=== PATIENT | female | born 1975 | race Caucasian/White ===

== ENCOUNTER 2017-04-12 03:14 | Emergency (ER) | payer OTHER ==
[~2017-04-12] VITALS: Ht 170.2 cm; Wt 65.8 kg
[~2017-04-12 03:14] MED LIST: XOPENEX HFA15 G1 IH
--- NOTE | 2017-04-12 04:01 | Diagnostic Imaging Report ---
CHEST 2 VIEWS, Technique: CHEST 2 VIEWS Comparison: 07/11/2011 Clinical history: Cough, fever DISCUSSION: Lung apices are partially excluded from view. Otherwise normal appearance of the heart, mediastinum, lungs and pleural spaces. IMPRESSION: No acute abnormality. Signed by: Dr Dolly Escobar MD on 04/12/2017 3:57 AM
== END 2017-04-12 04:45 | disposition home or self-care (01) ==
LOC: ER 03:14
DX: R50.9 Fever, unspecified (principal); R05 Cough; R11.0 Nausea; J00 Acute nasopharyngitis [common cold]; J45.909 Unspecified asthma, uncomplicated
CPT/HCPCS: 71020; 87400; 99283

== ENCOUNTER 2018-08-25 04:05 | Emergency (ER) | payer SELFPAY ==
[~2018-08-25] VITALS: Ht 170.2 cm; Wt 65.8 kg
--- OUTSIDE RECORDS SUMMARY | 2018-08-25 04:08 | XMS REPORT ---
Author [facility] Address Unknown Phone Unavailable Care Team Providers Care Cathodic Protection Technician Name Role Phone Saeed SHEETS Unavailable Unavailable Problems This patient has no known problems. Allergies, Adverse Reactions, Alerts This patient has no known allergies or adverse reactions. Medications This patient has no known medications. Results Test Description Test Time Test Comments Text Results Atomic Results Result Comments CHEST 2 VIEWS [place] [address] Patient Name: FREDDY BYRNES MR #: [id number] : 1975 Age/Sex: 41/F Req #: [id number] Adm Physician: Ordered by: CANDI SHEETS MD Report #: [id number] Location: ER Room/Bed: Procedure: [id number] DX/CHEST 2 VIEWS Exam Date: 04/12/17 Exam Time: 0340 REPORT STATUS: Signed CHEST 2 VIEWS, Technique: CHEST 2 VIEWS Comparison: 07/11/2011 Clinical history: Cough, fever DISCUSSION: Lung apices are partially excluded from view. Otherwise normal appearance of the heart, mediastinum, lungs and pleural spaces. IMPRESSION: No acute abnormality. Signed by: Dr Kristen Escobar MD on 04/12/2017 3:57 AM Dictated By: KRISTEN ESCOBAR MD Transcribed By: MARJ on 04/12/17356 COPY TO: CANDI SHEETS MD
== END 2018-08-25 04:30 | disposition left against medical advice (07) ==
LOC: ER 04:05
DX: K08.89 Other specified disorders of teeth and supporting structures (principal)

== ENCOUNTER 2020-02-06 20:10 | Emergency (ER) | payer SELFPAY ==
[~2020-02-06] VITALS: Ht 170.2 cm; Wt 73.0 kg
[2020-02-06] MEDS ORDERED: TRAMADOL HCL 50 MG TAB PO ONE (20:15)
--- NOTE | 2020-02-06 20:35 | Emergency Department Note ---
History of Present Illnes History of Present Illness Chief Complaint: Extremity Trauma/Pain History of Present Illness This is a 44 year old female presents to ED with edema to left ankle; pt states "I was chasing my dog and I tripped and fell and twisted my ankle." Pulses present, equal, strong to ble; no obvious deformity noted;. Historian: Patient Arrival Mode: Car Processing Assistant Required: No Onset (how long ago): hour(s) (1) Location: LEFT ANKLE Quality: PAIN AND SWELLING Radiation: Reports non-radiation Severity: moderate Onset quality: sudden Duration (how long): hour(s) (1) Timing of current episode: constant Progression: unchanged Chronicity: new Context: Reports trauma/injury ( ABOVE) Relieving factors: none Exacerbating factors: movement Associated symptoms: Reports denies other symptoms Treatments prior to arrival: none Past Medical/Family History Physician Review I have reviewed the patient's past medical and family history. Any updates have been documented here. Past Medical History Recent Fever: No Clinical Suspicion of Infectio: No New/Unexplained Change in Ment: No Past Medical History: Hypertension, A-Fib Other Medical History: N/A Other Surgery: HEART ABLATION Social History Smoking Cessation: Never Smoker Counseling Performed: No Alcohol Use: None Any Illegal Drug Use: No Family History Family history of heart diseas: No Other Last Tetanus: OOD Any Pre-Existing Lines (PICC,: No Review of Systems Review of Systems Constitutional: Reports no symptoms EENTM: Reports no symptoms Cardiovascular: Reports no symptoms Respiratory: Reports no symptoms Gastrointestinal: Reports no symptoms Genitourinary: Reports no symptoms Musculoskeletal: Reports as per HPI Integumentary: Reports no symptoms Neurological: Reports no symptoms Psychological: Reports no symptoms Endocrine: Reports no symptoms Hematological/Lymphatic: Reports no symptoms Physical Exam Related Data Allergies: Coded Allergies: Penicillins (Verified Allergy, Intermediate, 08/25/18) Cephalexin Monohydrate (Verified Allergy, Unknown, 08/25/18) Triage Vital Signs Vital Signs Date Time Temp Pulse Resp B/P (MAP) Pulse Ox O2 Delivery O2 Flow Rate FiO2 02/06/20 20:13 99.1 79 17 162/111 99 Room Air Vital signs reviewed: Yes Physical Exam CONSTITUTIONAL Constitutional: Present well-developed, Present well-nourished; Absent distressed HENT HENT: Present normocephalic, Present atraumatic, Present oropharynx clear/moist, Present nose normal HENT L/R: Present left ext ear normal, Present right ext ear normal EYES Eyes: Reports PERRL, Reports conjunctivae normal NECK Neck: Present ROM normal PULMONARY Pulmonary: Present effort normal, Present breath sounds normal CARDIOVASCULAR Cardiovascular: Present regular rhythm, Present heart sounds normal, Present capillary refill normal, Present normal rate GASTROINTESTINAL Abdominal: Present soft, Present nontender, Present bowel sounds normal GENITOURINARY Genitourinary: Present exam deferred SKIN Skin: Present warm, Present dry MUSCULOSKELETAL PT WITH SWELLING AND TENDERNESS TO LATERAL ASPECT OF LEFT ANKLE, NO OBVIOUS DEFORMITY PULSES 2+ INTACT, NEURO INTACT NEUROLOGICAL Neurological: Present alert, Present oriented x 3, Present no gross motor or sensory deficits PSYCHOLOGICAL Psychological: Present mood/affect normal, Present judgement normal Results Imaging Imaging results reviewed: Yes Impressions Procedure: [id number] DX/ANKLE 3+ VIEWS LEFT Exam Date: 02/06/20 Exam Time: 2019 REPORT STATUS: Signed X-ray 3 views of the left ankle. HISTORY: Left ankle pain. COMPARISON: None available. FINDINGS: Bones: No acute displaced fracture. Osseous alignment is within normal limits. Joints: The joint spaces are well-maintained. Soft tissues: There is mild ankle soft tissue swelling. IMPRESSION: Mild ankle soft tissue swelling without acute fracture or dislocation. Signed by: Kay Shen MD on 02/06/2020 8:41 PM Dictated By: KAY SHEN MD 40 Transcribed By: MARJ on 02/06/202040 COPY TO: CANDI SHEETS MD~ Assessment & Plan Medical Decision Making MDM PT WITHE LEFT ANKLE INJURY LEFT ANKLE XRAY ORDERED TO EVAL FOR FRACTURE TRAMADOL 50 MG PO ORDERED Assessment & Plan Final Impression: (1) Left ankle sprain Depart Disposition: HOME, SELF-CARE Last Vital Signs Date Time Temp Pulse Resp B/P (MAP) Pulse Ox O2 Delivery O2 Flow Rate FiO2 02/06/20 20:13 99.1 79 17 162/111 99 Room Air Home Meds Reported Medications Levalbuterol Tartrate (Xopenex Hfa) 15 Gm Hfa.aer.ad, 15 GM IH 07/11/11 Medications in the ED Tramadol HCl 50 mg ONCE ONCE PO ; Start 02/06/20 at 20:15; Stop 02/06/20 at 20:16; Status UNV CANDI SHEETS MD Feb 06, 2020 20:35
--- NOTE | 2020-02-06 20:44 | Diagnostic Imaging Report ---
X-ray 3 views of the left ankle. HISTORY: Left ankle pain. COMPARISON: None available. FINDINGS: Bones: No acute displaced fracture. Osseous alignment is within normal limits. Joints: The joint spaces are well-maintained. Soft tissues: There is mild ankle soft tissue swelling. IMPRESSION: Mild ankle soft tissue swelling without acute fracture or dislocation. Signed by: Kay Murillo MD on 02/06/2020 8:41 PM
--- OUTSIDE RECORDS SUMMARY | 2020-02-06 21:17 | XMS REPORT | Continuity of Care Document ---
Author Author [facility] t Organization [facility] Address [address] [place] [address] Phone Unavailable Care Team Providers Care Supervisor Painting Name Role Phone NO, PCP PCP Unavailable Saeed SHEETS Attphymati Unavailable Payers Payer Name Policy Type Policy Number Effective Date Expiration Date S ource Self Pay NA [facility] Problems Condition Name Condition Details Condition Category Status Onset Date Resolution Date Last Treatment Date Treating Clinician Comments Source Atrial fibrillation Problem Active 2011-07-11 00:00:00 [facility] Acute rhinitis Acute rhinitis Problem Active [facility] Allergies, Adverse Reactions, Alerts Allergy Name Allergy Type Status Severity Reaction(s) Onset Date Inacti ve Date Treating Clinician Comments Source Cephalexin Monohydrate Allergy to Substance Active 2018 00:00:00 [facility] Penicillin Allergy to Substance Active Moderate 2018-08-25 00:00:0 0 [facility] cephalexin DA Active ID 2018-08-25 00:00:00 [facility] penicillin G DA Active ID 2018-08-25 00:00:00 [facility] aspirin DA Active U 2008-11-02 00:00:00 [facility] cephalexin DA Active U 2008-11-02 00:00:00 [facility] penicillin G DA Active U 2008-11-02 00:00:00 [facility] PEANUTS DA Active U 2008-11-02 00:00:00 [facility] Medications Ordered Medication Name Filled Medication Name Start Date Stop Da te Current Medication? Ordering Clinician Indication Dosage Frequency Signature (SIG) Comments Components Source Levalbuterol Tartrate (Xopenex Hfa) 15 Gm Hfa.aer.ad L evalbuterol Tartrate (Xopenex Hfa) 15 Gm Hfa.aer.ad Yes 15 [facility] Procedures This patient has no known procedures. Encounters Start Date/Time End Date/Time [facility] Source 2018-08-25 04:05:00 2018-08-25 04:30:00 Departed Emergency Room [facility] [id number] [facility] Results Test Description Test Time Test Comments Results Result Comments Source ANKLE 3+ VIEWS LEFT 2020-02-06 20:40:00 [place] [address] Patient Name: FREDDY BYRNES MR #: [id number] : 1975 Age/Sex: 44/F Req #: [id number] Adm Physician: Ordered by: CANDI SHEETS MD Report #: [id number] Location: ER Room/Bed: Procedure: [id number] DX/ANKLE 3+ VIEWS LEFT Exam Date: 02/06/20 Exam Time: 2019 REPORT STATUS: Signed X-ray 3 views of the left ankle. HISTORY: Left ankle pain. COMPARISON: None available. FINDINGS: Bones: No acute displaced fracture. Osseous alignment is within normal limits. Joints: The joint spaces are well-maintained. Soft tissues: There is mild ankle soft tissue swelling. IMPRESSION: Mild ankle soft tissue swelling without acute fracture or dislocation. Signed by: Jarocho Shen MD on 02/06/2020 8:41 PM Dictated By: JAROCHO SHEN MD 40 Transcribed By: MARJ on 02/06/202040 COPY TO: CANDI SHEETS MD CHEST 2 VIEWS [place] [address] Patient Name: FREDDY BYRNES MR #: [id number] : 1975 Age/Sex: 41/F Req #: [id number] Adm Physician: Ordered by: CANDI SHEETS MD Report #: [id number] Location: ER Room/Bed: Procedure: [id number] DX/CHEST 2 VIEWS Exam Date: 04/12/17 Exam Time: 0340 REPORT STATUS: Signed CHEST 2 VIEWS, Technique: CHEST 2 VIEWS Comparison: 07/11/2011 Clinical history: Cough, fever DISCUSSION: Lung apices are partially excluded from view. Otherwise normal appearance of the heart, mediastinum, lungs and pleural spaces. IMPRESSION: No acute abnormality. Signed by: Dr Kristen Escobar MD on 04/12/2017 3:57 AM Dictated By: KRISTEN ESCOBAR MD 6 Transcribed By: MARJ on 04/12/17356 COPY TO: CANDI SHEETS MD
== END 2020-02-06 21:15 | disposition home or self-care (01) ==
LOC: ER 20:13
DX: S93.402A Sprain of unspecified ligament of left ankle, initial encounter (principal); W01.0XXA Fall on same level from slipping, tripping and stumbling without subsequent striking against object, initial encounter; Y93.02 Activity, running; Y92.008 Other place in unspecified non-institutional (private) residence as the place of occurrence of the external cause; I10 Essential (primary) hypertension; I48.91 Unspecified atrial fibrillation
CPT/HCPCS: 99283